=== PATIENT | female | born 1990 | race African-American/Black ===

== ENCOUNTER 2017-04-25 20:16 | Emergency (ER) | payer OTHER ==
[~2017-04-25] VITALS: Ht 172.7 cm; Wt 90.7 kg
[~2017-04-25 20:16] MED LIST: CEPACOL SORE T1 EAC5 MM; DOXYCYCLINE MO100 MG ORAL; IBUPROFEN600 MG ORAL; NORCO 5-325 TA1 EACH ORAL; PREDNISONE20 MG ORAL
[2017-04-25 20:29] VITALS: BP 139/83
[2017-04-25] MEDS ORDERED: Morphine Sulfate 4mg/ml Inj IVP ONE ×2 (20:30→21:00)
[2017-04-25 20:44] LABS: APPEARANCE,URINE SLIGHTLY CLOUDY; BASOPHILS % (AUTO) 0.9 % (0.0-2.0); EOSINOPHILS % (AUTO) 0.7 % (0.0-3.0); KETONES,URINE 2+ (NEGATIVE); LEUKOCYTE ESTERASE ,URINE 2+ (NEGATIVE); LYMPHOCYTES % (AUTO) 9.9 % (20.0-45.0); MEAN CORPUSCULAR HEMOGLOBIN 24.9 PG (27.0-31.0); MEAN CORPUSCULAR HGB CONC 32.3 G/DL (32.0-36.0); MEAN CORPUSCULAR VOLUME 77 FL (80-99); MEAN PLATELET VOLUME 8.2 FL (6.5-10.1); MONOCYTES % (AUTO) 6.4 % (1.0-10.0); NEUTROPHILS % (AUTO) 82.1 % (45.0-75.0); NITRITE,URINE POSITIVE (NEGATIVE); PH,URINE 6.5 (4.5-8.0); PLATELET COUNT 253 K/UL (150-450); PROTEIN,URINE 2+ (NEGATIVE); RED BLOOD COUNT 5.31 M/UL (4.20-5.40); RED CELL DISTRIBUTION WIDTH 14.7 % (11.6-14.8); UROBILINOGEN,URINE NORMAL MG/DL (0.0-1.0); WHITE BLOOD COUNT 16.4 K/UL (4.8-10.8)
[2017-04-25 20:52] LABS: BACTERIA,URINE MANY /HPF; SQUAMOUS EPITHELIAL CELL,UR FEW /LPF (NONE/OCC); WBC,URINE 40-60 /HPF (0 - 2)
[2017-04-25] MEDS ORDERED: Ketorolac 30mg Inj IV ONE (21:00)
[2017-04-25 21:19] LABS: ALANINE AMINOTRANSFERASE 12 U/L (3-33); ALBUMIN/GLOBULIN RATIO 1.1 (1.0-2.7); ANION GAP 12 (5-15); ASPARTATE AMINO TRANSFERASE 13 U/L (5-40); CALCIUM 9.8 mg/dL (8.6-10.2); CARBON DIOXIDE 27 mEQ/L (20-30); CHLORIDE 95 mEQ/L (98-107); CREATININE 0.9 mg/dL (0.5-0.9); GLOMERULAR FILTRATION RATE > 60 mL/min (>60); HEMOLYSIS 0; LIPASE 18 U/L (< 60); POTASSIUM 3.7 mEQ/L (3.4-4.9); SODIUM 134 mEQ/L (135-145); TOTAL PROTEIN 8.3 g/dL (6.6-8.7)
[2017-04-25 21:30] VITALS: BP 129/79
[2017-04-25] MEDS ORDERED: cefTRIAXone 1 GM in NS 55 ML IVPB ONE (21:30)
[2017-04-25] MEDS ORDERED: HYDROmorphone 1mg/ml Carpuject IVP ONE (22:00)
--- NOTE | 2017-04-25 22:01 | Emergency Room Report ---
History of Present Illness General Chief Complaint: Abdominal Pain Source: Patient, EMS (GUERO MONTANA M.D.) Present Illness HPI 27-year-old female presents ED for evaluation. Per EMS patient is been complaining of right flank pain radiating to right groin times one month. States that she is unable to see his doctor and try to treat her pain at home. Patient states the pain is sharp, 10 out of 10, radiating to the right groin. Denies any dysuria or hematuria. Denies nausea or vomiting. Denies fevers or chills. No other aggravating relieving factors. Denies any other associated symptom (GUERO MONTANA M.D.) Allergies: Coded Allergies: PENICILLINS (Verified Allergy, Unknown, 09/03/16) Patient History Past Medical History: none Past Surgical History: none Pertinent Family History: none Social History: Denies: alcohol use, drug use, smoking Last Menstrual Period: 1 month ago Now: No Immunizations: UTD Reviewed Nursing Documentation: PMH: Agreed, PSxH: Agreed (GUERO MONTANA M.D.) Nursing Documentation-PMH Past Medical History: No Stated History (GUERO MONTANA M.D.) Review of Systems All Other Systems: negative except mentioned in HPI (GUERO MONTANA M.D.) Physical Exam Vital Signs Date Time Temp Pulse Resp B/P Pulse Ox O2 Delivery O2 Flow Rate FiO2 04/25/17 20:23 98.2 104 15 139/83 98 Room Air Sp02 EP Interpretation: reviewed, normal General Appearance: alert, GCS 15, non-toxic, mild distress, obese Head: normocephalic Eyes: bilateral eye PERRL, bilateral eye normal inspection ENT: normal ENT inspection Neck: normal inspection Respiratory: chest non-tender, lungs clear, normal breath sounds, speaking full sentences Cardiovascular #1: regular rate, rhythm, no edema Gastrointestinal: normal bowel sounds, soft, non-distended, no guarding, no rebound, tenderness Rectal: deferred Genitourinary: CVA tenderness (R) Musculoskeletal: normal inspection Neurologic: alert, oriented x3, responsive, motor strength/tone normal, sensory intact, speech normal Psychiatric: normal inspection Skin: normal inspection Lymphatic: normal inspection (GUERO MONTANA M.D.) Medical Decision Making Diagnostic Impression: Primary Impression: Pyelonephritis ER Course Received signout from Dr Montana at 10pm to re-assess CTAP no acute abnormality Labs: Leuks 16K, UTI. Clinically pyleonephritis Was given IV Abx here in ED Patient was given 2x morphine and toradol by Dr Montana and 1mg dilaudid by me Continues to ask for pain meds Building concern for narcotic seeking behavior Asking for food as well. Tolerating PO - will therefore be DCed with oral Abx PMD followup as needed DC home (KATHERINE LINDO M.D.) Last Vital Signs Date Time Temp Pulse Resp B/P Pulse Ox O2 Delivery O2 Flow Rate FiO2 04/25/17 21:20 98.2 04/25/17 20:29 104 15 139/83 98 Room Air (GUERO MONTANA M.D.) Status: improved (KATHERINE LINDO M.D.) Disposition: HOME, SELF-CARE Scripts Ciprofloxacin Hcl* (CIPROFLOXACIN HCL*) 500 Mg Tablet 500 MG ORAL EVERY 12 HOURS for 7 Days, #14 TAB 0 Refills Prov: KATHERINE LINDO M.D. 04/25/17 Referrals: [facility],REFERRING (PCP) GUERO MONTANA M.D. Apr 25, 2017 22:01 KATHERINE LINDO M.D. Apr 25, 2017 22:36
[2017-04-25] MEDS ORDERED: CIPROFLOXACIN500 M2 ORAL (22:19)
[2017-04-25 22:29] VITALS: BP 124/75
[2017-04-25 22:56] VITALS: BP 124/75
--- NOTE | 2017-04-26 09:22 | Diagnostic Imaging Report ---
Indication: Abdominal pain Technique: Continuous helical transaxial imaging of the abdomen and pelvis was obtained from the lung bases to the pubic symphysis during intravenous contrast administration. Coronal 2-D reformats were also obtained. Study obtained in a Siemens sensation [address] Total Dose length Product (DLP): [address] Dose Index Volume (CTDIvol): 19 mGy Comparison: None Findings: Lung bases are clear. Solid organs appear normal. Visualized part of the appendix is unremarkable. Bowel gas pattern is normal. There is small amount of free fluid in the pelvis. Uterus and adnexal structures noted but not evaluated well. Impression: No acute findings [facility] has communicated the preliminary results to the Emergency Department. Their findings are largely concordant with this report. The CT scanner at [facility] is accredited by the [employer] and the scans are performed using dose optimization techniques as appropriate to a performed exam including Automatic Exposure control.
== END 2017-04-25 22:56 | disposition home or self-care (01) ==
LOC: EDBD 20:16 → EMR 20:52
DX: N39.0 Urinary tract infection, site not specified (principal); Z88.0 Allergy status to penicillin
CPT/HCPCS: 36415; 74177; 80053; 81003; 81025; 83690; 85025; 87086; 87181; 96360; 96361; 96374; 96375; 99284; J0696; J1170; J1885; J2270; J2405; Q9967